=== PATIENT | female | born 2005 | race Caucasian/White ===

== ENCOUNTER 2024-06-17 12:14 | Outpatient (CLI) | payer BC, SELFPAY ==
[2024-06-17 16:07] LABS: Chlamydia DNA Amplified* NOT DETECTED (No Detected); GC DNA Amplified* NOT DETECTED (No Detected)
[2024-06-17 17:31] LABS: Chlamydia DNA Amplified* NOT DETECTED (No Detected); GC DNA Amplified* NOT DETECTED (No Detected)
[2024-06-19 03:24] LABS: HSV 1 Subtype by PCR Detected; HSV 2 Subtype by PCR Not Detected; Herpes Simplex Subtype Source Genital
[2024-06-20 05:58] LABS: HSV 1 Subtype by PCR Detected; HSV 2 Subtype by PCR Not Detected
== END 2024-06-17 12:15 | disposition home or self-care (01) ==
PROVIDERS: Visit Provider Physician Assistant
DX: J02.9 Acute pharyngitis, unspecified (principal); N76.0 Acute vaginitis; Z11.3 Encounter for screening for infections with a predominantly sexual mode of transmission
CPT/HCPCS: 86592; 86703; 87491; 87529; 87591